=== PATIENT | female | born 1970 | race Caucasian/White ===

== ENCOUNTER → 2016-10-08 | Outpatient (CLI) | payer BC ==
[~2016-10-08] VITALS: Ht 160 cm; Wt 97.3 kg
[~2016-10-08] MED LIST: ALBUAER INH; ALPR-411 PO; ASCO1CAP3 PO; BACL1TAB PO; CHOL1000 PO; CYAN500T13 PO; DULO60CA44 PO; IBUP600T44 PO; LSN/2025 PO; MIRENA IUD; PREG100C PO; SIMV20TA2 PO
[2016-10-08 15:23] VITALS: BP 122/82; PULSE 82; Ht 160 cm; Wt 97.3 kg
== END | disposition home or self-care (01) ==
LOC: C.NEUR 13:54
PROVIDERS: ATTEND Internal Medicine Pulmonary Disease
DX: G47.00 Insomnia, unspecified (principal); G47.30 Sleep apnea, unspecified; E66.9 Obesity, unspecified; R06.83 Snoring; R53.83 Other fatigue

== ENCOUNTER → 2016-12-04 | Outpatient (CLI) | payer BC ==
--- NOTE | 2016-12-06 10:52 | POLYSOMNOGRAPH REPORT ---
CLINICAL DATA: A 46-year-old female with a BMI of [address] Moraes, Dr. Monroe and myself with symptoms of progressive snoring, witnessed apneic episodes, daytime fatigue, and hypersomnolence. On the evening of 12/05/2016, a home sleep apnea test was performed using a [employer] type 3 monitor. RECORDING RESULTS: Total recording time was 9 hours. The patient's monitoring time and estimated sleep time was 7.5 hours. RESPIRATORY DATA: Mild sleep apnea was documented. The RICO was 9.2. There was 1 obstructive apneic episode and 68 hypopneic episodes. The longest respiratory event was 43 seconds. OXIMETRY DATA: Nocturnal hypoxemia was seen. Oxygen raffy was 81%. Mean saturation was 96%. Time below 89% was 9 minutes. EKG: Heart rates ranged from 57-65 beats per minute. SNORING DATA: Snoring was recorded throughout the night. WRECKING SUPERVISOR'S COMMENTS: The patient had hypopneas and 1 apnea seen. All about 1 occurred while she was on her back. They occurred in clusters suggesting that they may have been occurring primarily during REM sleep. IMPRESSION: Mild sleep apnea/hypopnea with nocturnal hypoxemia. The majority of the patient's episodes occurred while lying on her back. RECOMMENDATIONS: The patient may benefit from weight loss, positional therapy, use of an oral appliance, or CPAP. Clinical correlation is needed. MAYTE
== END | disposition home or self-care (01) ==
LOC: C.NEUR 09:53
PROVIDERS: ATTEND Internal Medicine Pulmonary Disease
DX: R53.83 Other fatigue (principal); E66.9 Obesity, unspecified; G47.30 Sleep apnea, unspecified; R06.83 Snoring

== ENCOUNTER → 2016-12-31 | Outpatient (CLI) | payer BC ==
[~2016-12-31] VITALS: Ht 160 cm; Wt 97.8 kg
[2016-12-31 12:44] VITALS: BP 130/81; PULSE 90; Ht 160 cm; Wt 97.8 kg
== END | disposition home or self-care (01) ==
LOC: C.NEUR 12:25
PROVIDERS: ATTEND Internal Medicine Pulmonary Disease
DX: G47.30 Sleep apnea, unspecified (principal)

== ENCOUNTER 2017-05-01 18:17 | Inpatient (IN) | payer BC ==
[~2017-05-01] VITALS: Ht 160 cm; Wt 99.4 kg
--- NOTE | 2017-05-01 18:57 | EMERGENCY ROOM VISIT NOTE ---
History Report prepared by Rae: Tiffanie Poon Under the Supervision of: Dr. Alex Smith M.D. First contact with patient: 18:42 Chief Complaint: MENTAL HEALTH EVALUATION Stated Complaint: DEPRESSION History of Present Illness The patient is a 46 year old female who presents to the Emergency Room with complaints of persistent suicidal ideation for three weeks [employer]. She was recently seen by her therapist. She notes that she has been having thoughts of suicide for the last three weeks. She notes that she has had similar feelings in the past, though not this severe. She notes that she has a job, though it is unstable. She notes financial issues. She notes that she feels as though she will give up if something were to happen to her, though denies making any plans to commit suicide. She notes that if she got sick, she would not take her medication and she would rather "roll over and ." She notes headaches, nausea associated with nervousness. She has a history of vertigo. She denies any coughs, fevers, chills, congestion, dizziness, vomiting, diarrhea, abdominal pain, or urinary symptoms. 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 She notes nervousness. She denies any congestion or dizziness. Review of Systems See HPI for pertinent positives and negatives. A total of ten systems were reviewed and were otherwise negative. 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 (3) chiari decompression (4) Depression (5) Dry eyes (6) Fibromyalgia (7) NARENDRA (generalized anxiety disorder) (8) Major depressive disorder, recurrent severe without psychotic features (9) Neurogenic claudication (10) Spasm of thoracic back muscle (11) Spinal stenosis (12) Vertigo Surgical Problems: (1) H/O hernia repair (2) H/O tubal ligation (3) History of cholecystectomy Family History Cancer Diabetes mellitus Gallbladder disease Heart disease Hypertension Kidney disease Kidney stones Lung disease Social History Smoking Status: Never Smoker Smokeless Tobacco Use: No Alcohol Use: none Drug Use: none Marital Status: Housing Status: lives with significant other Occupation Status: employed Current/Historical Medications Scheduled Ascorbic Acid (Vitamin C), 1 CAP PO QAM Baclofen (Lioresal), 10 MG PO TID Cholecalciferol (Vitamin D3), 5,000 UNITS PO QAM Cyanocobalamin (Vitamin B12 500MCG), 1 TAB PO QAM Duloxetine Hcl (Cymbalta), 60 MG PO HS Hctz/Lisinopril (Zestoretic 20MG/25MG), 1 TAB PO QAM Levonorgestrel (Iud) (Mirena), 1 DOSE IU [id number] Polyethylene Glycol-Propylene (Systane Ultra), 1 DROPS OP DAILY Pregabalin (Lyrica), 1 CAP PO BID Simvastatin (Zocor), 20 MG PO QPM Trazodone Hcl (Trazodone), 100 MG PO HS [Black Cohosh], 2 TAB PO QAM Scheduled PRN Alprazolam (Xanax), 0.5 MG PO TID PRN for Anxiety Meclizine HCl (Meclizine HCl), 12.5 MG PO TID PRN for Dizziness or Vertigo Allergies Coded Allergies: No Known Allergies (Verified , `, 05/01/17) Physical Exam Vital Signs Date Time Temp Pulse Resp B/P (MAP) Pulse Ox O2 Delivery O2 Flow Rate FiO2 05/01/17 20:30 75 18 156/80 96 Room Air 05/01/17 18:31 37.0 77 16 149/92 96 Room Air Physical Exam GENERAL: Awake, alert, in no distress. Depressed affect. HENT: Normocephalic, atraumatic. Oropharynx dry mucus membranes EYES: Normal conjunctiva. Sclera non-icteric. NECK: Supple. No nuchal rigidity. FROM. No JVD. RESPIRATORY: Clear to auscultation. CARDIAC: Regular rate, normal rhythm. Extremities warm and well perfused. Pulses equal. ABDOMEN: Soft, non-distended. No tenderness to palpation. No rebound or guarding. No masses. RECTAL: Deferred. MUSCULOSKELETAL: Chest examination reveals no tenderness. The back is symmetrical on inspection without obvious abnormality. There is no CVA tenderness to palpation. No joint edema. LOWER EXTREMITIES: Calves are equal size bilaterally and non-tender. No edema. No discoloration. NEURO: Normal sensorium. No sensory or motor deficits noted. SKIN: No rash or jaundice noted. PSYCH: Positive SI: no plan, but passive ideation. No HI. Medical Decision & Procedures Laboratory Results 05/01/17 19:10 Red Blood Count 4.03, Mean Corpuscular Volume 91.6, Mean Corpuscular Hemoglobin 31.5, Mean Corpuscular Hemoglobin Concent 34.4, Mean Platelet Volume 10.5, Neutrophils (%) (Auto) 57.8, Lymphocytes (%) (Auto) 29.8, Monocytes (%) (Auto) 9.7, Eosinophils (%) (Auto) 2.3, Basophils (%) (Auto) 0.3, Neutrophils # (Auto) 4.23, Lymphocytes # (Auto) 2.18, Monocytes # (Auto) 0.71, Eosinophils # (Auto) 0.17, Basophils # (Auto) 0.02 05/01/17 19:10 Test 05/01/17 18:14 05/01/17 18:44 05/01/17 19:10 Urine Test NEG (NEG) Urine Color DK YELLOW Urine Appearance CLEAR (CLEAR) Urine pH 6.5 (4.5-7.5) Urine Specific [place] 1.016 (1.000-1.030) Urine Protein NEG (NEG) Urine Glucose (UA) NEG (NEG) Urine Ketones NEG (NEG) Urine Occult Blood NEG (NEG) Urine Nitrite NEG (NEG) Urine Bilirubin NEG (NEG) Urine Urobilinogen NEG (NEG) Urine Leukocyte Esterase TRACE (NEG) Urine WBC (Auto) 1-5 /hpf (0-5) Urine RBC (Auto) 0-4 /hpf (0-4) Urine Hyaline Casts (Auto) 1-5 /lpf (0-5) Urine Epithelial Cells (Auto) >30 /lpf (0-5) Urine Bacteria (Auto) 1+ (NEG) Urine Crystals TALC (NONE PRSENT) Urine Opiates Screen NEG (NEG) Urine Methadone, Qualitative NEG (NEG) Urine Barbiturates NEG (NEG) Urine Phencyclidine (PCP) Level NEG (NEG) Ur Amphetamine/Methamphetamine NEG (NEG) MDMA (Ecstasy) Screen NEG (NEG) Urine Benzodiazepines Screen POS (NEG) Urine Cocaine Metabolite NEG (NEG) Urine Marijuana (THC) NEG (NEG) White Blood Count 7.32 K/uL (4.8-10.8) Red Blood Count 4.03 M/uL (4.2-5.4) Hemoglobin 12.7 g/dL (12.0-16.0) Hematocrit 36.9 % (37-47) Mean Corpuscular Volume 91.6 fL (80-100) Mean Corpuscular Hemoglobin 31.5 pg (25-34) Mean Corpuscular Hemoglobin Concent 34.4 g/dl (32-36) Platelet Count 216 K/uL (130-400) Mean Platelet Volume 10.5 fL (7.4-10.4) Neutrophils (%) (Auto) 57.8 % Lymphocytes (%) (Auto) 29.8 % Monocytes (%) (Auto) 9.7 % Eosinophils (%) (Auto) 2.3 % Basophils (%) (Auto) 0.3 % Neutrophils # (Auto) 4.23 K/uL (1.4-6.5) Lymphocytes # (Auto) 2.18 K/uL (1.2-3.4) Monocytes # (Auto) 0.71 K/uL (0.11-0.59) Eosinophils # (Auto) 0.17 K/uL (0-0.5) Basophils # (Auto) 0.02 K/uL (0-0.2) RDW Standard Deviation 42.2 fL (36.4-46.3) RDW Coefficient of Variation 12.6 % (11.5-14.5) Immature Granulocyte % (Auto) 0.1 % Immature Granulocyte # (Auto) 0.01 K/uL (0.00-0.02) Anion Gap 5.0 mmol/L (3-11) Est Creatinine Clear Calc Drug Dose 115.1 ml/min Estimated GFR () 121.3 Estimated GFR (Non- 104.6 BUN/Creatinine Ratio 13.4 (10-20) Calcium Level 8.9 mg/dl (8.5-10.1) Total Bilirubin 0.5 mg/dl (0.2-1) Direct Bilirubin < 0.1 mg/dl (0-0.2) Aspartate Amino Transf (AST/SGOT) 13 U/L (15-37) Alanine Aminotransferase (ALT/SGPT) 32 U/L (12-78) Alkaline Phosphatase 51 U/L (45-117) Total Protein 7.4 gm/dl (6.4-8.2) Albumin 3.9 gm/dl (3.4-5.0) Globulin 3.5 gm/dl (2.5-4.0) Albumin/Globulin Ratio 1.1 (0.9-2) Thyroid Stimulating Hormone (TSH) 1.860 uIu/ml (0.300-4.500) Ethyl Alcohol mg/dL < 3.0 mg/dl (0-3) Laboratory results reviewed by me ED Course 1848: The patient was evaluated in room A8. A complete history and physical exam was performed. 2030: I spoke with Keturah Collazo, psychiatric case management. We discussed the patient's case. The patient is medically cleared. Medical Decision I reviewed the patient's past medical history, medications, and the nursing notes as described above. The patient's presentation and history were concerning for worsening depression , suicidality, glen, infectious vs. metabolic disturbance. The patient is a 46-year-old woman with a past medical history of depression who presents emergency Department with worsening depression and passive suicidal ideation related to her work per hpi. She reports passive suicidal ideation saying that if something were to happen to her she would just give up and . On arrival the patient has a depressed affect but is in no acute distress, afebrile with stable vital signs. Labs unremarkable in the patient was medically cleared. Given the patient's passive suicidal ideation and despair inpatient psych admission is reasonable. Patient willing to be admitted voluntarily. Admitted to 3[facility]. Medication Reconcilliation Current Medication List: was personally reviewed by me Blood Pressure Screening Patient's blood pressure: Elevated blood pressure Blood pressure disposition: Elevated BP felt to be situational Impression Primary Impression: Depression Additional Impression: Passive suicidal ideations Scribe Attestation The scribe's documentation has been prepared under my direction and personally reviewed by me in its entirety. I confirm that the note above accurately reflects all work, treatment, procedures, and medical decision making performed by me. Departure Information Dispostion Other ([facility]) Referrals Clarisse Moraes M.D. (MEDICAL) (PCP) Patient Instructions My [facility] Problem Qualifiers
[2017-05-01] MEDS ORDERED: TRAZ50TA35 PO (19:26)
[2017-05-01] MEDS ORDERED: POLY1SOL6 OP (19:26)
[2017-05-01] MEDS ORDERED: LEVO1IUD2 IU (19:27)
[2017-05-01] MEDS ORDERED: BLACK COHOSH PO (19:28)
[2017-05-01] MEDS ORDERED: ANT25 PO (19:29)
[2017-05-01 19:34] LABS: BASO % 0.3 %; BASO ABS # 0.02 K/uL (0-0.2); EOS % 2.3 %; EOS ABS # 0.17 K/uL (0-0.5); HEMATOCRIT 36.9 % (37-47); HEMOGLOBIN 12.7 g/dL (12.0-16.0); IG# 0.01 K/uL (0.00-0.02); LYMPH % 29.8 %; LYMPH ABS # 2.18 K/uL (1.2-3.4); MEAN CELL VOLUME 91.6 fL (80-100); MEAN CORPUSCULAR HEMOGLOBIN 31.5 pg (25-34); MEAN CORPUSCULAR HGB CONC 34.4 g/dl (32-36); MEAN PLATELET VOLUME 10.5 fL (7.4-10.4); MONO % 9.7 %; MONO ABS # 0.71 K/uL (0.11-0.59); NEUT % 57.8 %; NEUT ABS # 4.23 K/uL (1.4-6.5); PLATELET COUNT 216 K/uL (130-400); RED CELL DISTRIBUTION WIDTH CV 12.6 % (11.5-14.5); RED CELL DISTRIBUTION WIDTH SD 42.2 fL (36.4-46.3); WHITE BLOOD COUNT 7.32 K/uL (4.8-10.8)
[2017-05-01 19:52] LABS: ALBUMIN 3.9 gm/dl (3.4-5.0); ALT/SGPT 32 U/L (12-78); AST/SGOT 13 U/L (15-37); BLOOD UREA NITROGEN 9 mg/dl (7-18); CALCIUM 8.9 mg/dl (8.5-10.1); CARBON DIOXIDE 28 mmol/L (21-32); GLUCOSE 92 mg/dl (70-99); POTASSIUM 3.3 mmol/L (3.5-5.1); SODIUM 136 mmol/L (136-145)
[2017-05-01 20:09] LABS: ALKALINE PHOSPHATASE 51 U/L (45-117); TOTAL PROTEIN 7.4 gm/dl (6.4-8.2)
[2017-05-01] MEDS ORDERED: IBUPROFEN 600 MG TAB PO STA (21:38)
[2017-05-01 21:59] VITALS: O2SAT 96
[2017-05-01] MEDS ORDERED: ALPR-411 PO (22:23)
[2017-05-01] MEDS ORDERED: NURSING VERBAL MED ORDER ONE (22:30)
[2017-05-01] MEDS ORDERED: ALPRAZOLAM 0.5 MG TAB PO PRN (22:45)
[2017-05-01] MEDS ORDERED: hydrOXYzine HCL 25 MG TAB PO PRN ×2 (22:45)
[2017-05-01] MEDS ORDERED: ALUMINUM/MAGNESIUM SUSP 30 ML UDC PO PRN (22:45)
[2017-05-01] MEDS ORDERED: BISMUTH SUBSALICYLATE PER ML OMNICELL CHARGE PO PRN (22:45)
[2017-05-01] MEDS ORDERED: MAGNESIUM HYDROXIDE SUSP 30 ML UDC PO PRN (22:45)
[2017-05-01] MEDS ORDERED: SODIUM CHLORIDE 0.65% NA SOLN 45 ML (OCEAN) PRN (22:45)
[2017-05-01 22:46] VITALS: BP 126/81; PULSE 77; TEMP 37; Ht 160 cm; Wt 99.4 kg
[2017-05-01] MEDS ORDERED: DULOXETINE HCL 60 MG CAP PO SCH (23:00)
[2017-05-01] MEDS ORDERED: TRAZODONE HCL 100 MG TAB PO SCH (23:00)
[2017-05-01] MEDS: BACLOFEN 10 MG TAB PO SCH (23:06)
[2017-05-02 06:54] VITALS: BP_SYST 123; BP_SYST 125; BP_DIAS 66; BP_DIAS 85; PULSE 69; PULSE 73; TEMP 36.8
[2017-05-02] MEDS: BACLOFEN 10 MG TAB PO SCH ×3 (09:17→21:20)
[2017-05-02] MEDS ORDERED: LISINOPRIL/HCTZ 20/25MG TAB PO ONE (10:31)
--- NOTE | 2017-05-02 10:31 | Psychiatric History & Physical ---
History Date of Service May 02, 2017. Identifying Data Xin Wesley is a 46-year-old female admitted voluntarily on May 01, 2017 at 21 :28 who presented to the emergency department with her mother on referral from her therapist, Jill Byrd. The patient has been depressed anxious and unable to function with passive suicidal thinking. Information is gathered from the patient and considered to be reliable. Chief Complaint "I can't deal.". History of Present Illness The patient is a 46-year-old woman who is currently in mental health treatment with a therapist, Jill Byrd for the last 3 years for depression and anxiety. She is on antidepressants and antianxiety agents as prescribed by her neurologist whom she sees for Chiari malformation and fibromyalgia. She has a history of depression dating back to his early as the when her lost his job and there was a great deal of stress placed upon her. She felt traumatized by the experience as she had to get food stamps and was embarrassed. During that time she also said she had some behaviors that were "not like me" including exercising to excess as a coping strategy, losing weight and ultimately having an affair. Since that time her has gotten another job. 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 She then took a job with the outsourcing [employer] but it was at a lesser pay rate and this was a financial stress. Recently she learned that as a result of the cyber attacks, their company has been losing accounts, and the particular account she had been working for will stop by next week. She fears that she will lose her job altogether and feels she has very few resources for a new job given the fact that she doesn't have a college degree. She also has what she describes as "physical limitations on "based on the fact that she has back issues, fibromyalgia, neurogenic claudication that make it difficult for her to stand or be active for long periods of time. Her parents will be moving in with them somewhere around August after they make some modifications to the house. There are movies 2 fold, one to help with her father who is in poor health but also for the parents to be able to help them financially. She is worried about the process of obtaining alone in order to create the in law suite for her parents. She has been increasingly anxious, depressed, sleeping a great deal. She has been begun to have suicidal thoughts, passive in nature, saying that if something happened and she she wouldn't care. Yesterday, she was feeling overwhelmed. She was escaping to her closet to cry where there were no windows and no one could see her. She recognized that she was deteriorating and so called her therapist who saw her urgently and then referred her to the emergency department. The patient reports worsening depression for at least the last 3 weeks. She admits to passive suicidal thinking. Her sleep has been to excess, napping during the day as well as sleeping at night. Her appetite has been low. She put on weight over the holidays but she thinks she has lost that weight with her low appetite recently. Her energy is low. Her focus and concentration are poor. She thinks she is doing okay at work but finds that she can't remember things well. She also describes having load cognitive issues". She had neuropsych testing that confirmed that she has comprehension issues but doesn't know anything more specific about that. She reports chronic anxiety but lately it is the "worst it's ever been". She experiences symptoms of shaking, feeling uneasy, having a sense of doom and gloom. She has a history of panic attacks but has not experienced any lately. She denies any auditory or visual hallucinations. She denies any discrete episodes of euphoric mood, sleeplessness or pleasure seeking behaviors but says she does have times when she finds brinda in decorating and will plan to have lots of projects such as painting rooms. She denies any history of self-injurious behaviors. She denies any history of eating disorder behaviors although does admit that she eats for comfort. Past Psychiatric History Current OP Treatment: therapist (Arely Byrd) Prior OP Treatment: no prior treatment Prior Psych Hospitalizations: none Access to a Gun: Yes (2 are not locked) Suicide Attempts: No Past Medication Trials 1. Celexa- had to come off when Dr. Avilez wanted to start Cymbalta 2. Effexor-didn't work 3. Prozac-didn't work, and affective blunting Past Medical/Surgical History History of Concussion/Seizure: No (1) chiari decompression (2) bone tumor removal of right toe (3) Fibromyalgia (4) Spinal stenosis (5) Vertigo (6) Dry eyes (7) Neurogenic claudication Allergies Allergies: Coded Allergies: No Known Allergies (Verified , `, 05/01/17) Home Medications Scheduled Ascorbic Acid (Vitamin C), 1 CAP PO QAM Baclofen (Lioresal), 10 MG PO TID Cholecalciferol (Vitamin D3), 5,000 UNITS PO QAM Cyanocobalamin (Vitamin B12 500MCG), 1 TAB PO QAM Duloxetine Hcl (Cymbalta), 60 MG PO HS Hctz/Lisinopril (Zestoretic 20MG/25MG), 1 TAB PO QAM Levonorgestrel (Iud) (Mirena), 1 DOSE IU [id number] Polyethylene Glycol-Propylene (Systane Ultra), 1 DROPS OP DAILY Pregabalin (Lyrica), 1 CAP PO BID Simvastatin (Zocor), 20 MG PO QPM Trazodone Hcl (Trazodone), 100 MG PO HS [Black Cohosh], 2 TAB PO QAM Scheduled PRN Alprazolam (Xanax), 0.5 MG PO TID PRN for Anxiety Meclizine HCl (Meclizine HCl), 12.5 MG PO TID PRN for Dizziness or Vertigo Family History Cancer Diabetes mellitus Gallbladder disease Heart disease Hypertension Kidney disease Kidney stones Lung disease History of Suicide: No History of Substance Abuse: No Psychiatric History: Yes (both parents with anxiety and depression, maternal grandmother with "nerve issues". Son with ADHD) Alcohol Use Alcohol Use In Past 12 Months: No AUDIT Total Score: 1 Smoking Use Smoking Status: Never Smoker Substance History Denies Personal History Lives in: [place] Childhood: Raised by both mother and father. Has one brother one sister. Good relationship with brother, estranged from sister. She grew up locally. 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 [employer] Relationship History: (25 years) Children: 2 adult sons ages 20 and 23 Spiritual Affiliation: Voodoo Legal History: none Psychological Trauma History: Denies Hx Traumatic Event Review of Systems Constitutional: malaise Eyes: reports: other (dry eyes) ENT: denies: no symptoms reported, see HPI, ear pain, ear discharge, loss of hearing, tinnitus, nasal pain, nasal congestion, rhinorrhea, epistaxis, sore throat, stidor, throat swelling, mouth pain, mouth swelling, dental pain, gum swelling, other Cardiovascular: denies: no symptoms reported, see HPI, chest pain, chest tightness, chest pressure, diaphoresis, palpitations, syncope, other Respiratory: denies: no symptoms reported, see HPI, cough, orthopnea, short of breath, stridor, wheezing, sputum production, cyanosis, PUENTE, PND, other Gastrointestinal: nausea Genitourinary - Female: reports: other (urinary frequency) Musculoskeletal: other (chronic low back pain rated 3 out of 10) Integumentary: denies no symptoms reported, denies see HPI, denies change in color, denies change in hair/nails, denies dryness, denies lesions, denies lumps , denies rash, denies other Neurologic: reports: paresthesias (bilateral lower extremities) Endocrine: denies: no symptoms, as stated in HPI, cold intolerance, heat intolerance, hair changes, goiter, polydipsia, polyuria, skin changes, other Hematologic / Lymphatic: denies: no symptoms, as stated in HPI, abnormal clotting, adenopathy, anemia, easy bleeding, easy bruising, gums bleeding, petechiae, other Examination Physical Examination Exam performed by Dr. espinoza in the emergency Department has been reviewed and accepted as medical clearance for our unit Vital Signs Vital Signs Past 12 Hours Date Time Temp Pulse Resp B/P (MAP) Pulse Ox O2 Delivery O2 Flow Rate FiO2 05/02/17 06:54 36.8 69 16 123/85 73 125/66 05/01/17 22:46 37.0 77 18 126/81 Laboratory Results Last 24 Hours Test 05/01/17 18:14 05/01/17 18:44 05/01/17 19:10 Urine Test NEG Urine Color DK YELLOW Urine Appearance CLEAR Urine pH 6.5 Urine Specific [place] 1.016 Urine Protein NEG Urine Glucose (UA) NEG Urine Ketones NEG Urine Occult Blood NEG Urine Nitrite NEG Urine Bilirubin NEG Urine Urobilinogen NEG Urine Leukocyte Esterase TRACE Urine WBC (Auto) 1-5 /hpf Urine RBC (Auto) 0-4 /hpf Urine Hyaline Casts (Auto) 1-5 /lpf Urine Epithelial Cells (Auto) >30 /lpf Urine Bacteria (Auto) 1+ Urine Crystals TALC Urine Opiates Screen NEG Urine Methadone, Qualitative NEG Urine Barbiturates NEG Urine Phencyclidine (PCP) Level NEG Ur Amphetamine/Methamphetamine NEG MDMA (Ecstasy) Screen NEG Urine Benzodiazepines Screen POS Urine Cocaine Metabolite NEG Urine Marijuana (THC) NEG White Blood Count 7.32 K/uL Red Blood Count 4.03 M/uL Hemoglobin 12.7 g/dL Hematocrit 36.9 % Mean Corpuscular Volume 91.6 fL Mean Corpuscular Hemoglobin 31.5 pg Mean Corpuscular Hemoglobin Concent 34.4 g/dl Platelet Count 216 K/uL Mean Platelet Volume 10.5 fL Neutrophils (%) (Auto) 57.8 % Lymphocytes (%) (Auto) 29.8 % Monocytes (%) (Auto) 9.7 % Eosinophils (%) (Auto) 2.3 % Basophils (%) (Auto) 0.3 % Neutrophils # (Auto) 4.23 K/uL Lymphocytes # (Auto) 2.18 K/uL Monocytes # (Auto) 0.71 K/uL Eosinophils # (Auto) 0.17 K/uL Basophils # (Auto) 0.02 K/uL RDW Standard Deviation 42.2 fL RDW Coefficient of Variation 12.6 % Immature Granulocyte % (Auto) 0.1 % Immature Granulocyte # (Auto) 0.01 K/uL Sodium Level 136 mmol/L Potassium Level 3.3 mmol/L Chloride Level 103 mmol/L Carbon Dioxide Level 28 mmol/L Anion Gap 5.0 mmol/L Blood Urea Nitrogen 9 mg/dl Creatinine 0.70 mg/dl Est Creatinine Clear Calc Drug Dose 115.1 ml/min Estimated GFR () 121.3 Estimated GFR (Non- 104.6 BUN/Creatinine Ratio 13.4 Random Glucose 92 mg/dl Calcium Level 8.9 mg/dl Total Bilirubin 0.5 mg/dl Direct Bilirubin < 0.1 mg/dl Aspartate Amino Transf (AST/SGOT) 13 U/L Alanine Aminotransferase (ALT/SGPT) 32 U/L Alkaline Phosphatase 51 U/L Total Protein 7.4 gm/dl Albumin 3.9 gm/dl Globulin 3.5 gm/dl Albumin/Globulin Ratio 1.1 Thyroid Stimulating Hormone (TSH) 1.860 uIu/ml Ethyl Alcohol mg/dL < 3.0 mg/dl Mental Examination During interview pt is: alert and oriented, cooperative Appearance: appropriately dressed, appropriately groomed Eye contact is: good Motor behavior is: steady gait & station, no abnormal motor movements Speech: normal in rate, rhythm & volume Affect: depressed, flat Mood is: depressed, anxious Thought process: goal directed Thought content: reality based without delusions Suicidal thought are: present, Plan: denied, Intent: denied Homicidal thoughts are: denied Hallucinations: denies auditory, denies visual Cognition: memory grossly intact, attention grossly intact, language grossly intact Intelligence estimated to be: average Insight: impaired Judgement: impaired Impression / Recommendations Impression 46-year-old woman admitted with depression and anxiety, inability to function. Her primary stresses the reduction in her work possibilities and fear that she will become unemployed. She is currently on Cymbalta 60 mg and has agreed for this to be increased to 90 mg daily to target mood and anxiety as well as her chronic pain. She has been sleeping to excess and so we will reduce her trazodone to 50 mg daily and potentially discontinue. This is also worsening her dry eyes. She has been on Xanax when necessary but appears to be chasing her anxiety and so we will convert this to Klonopin 1 mg twice a day when necessary. Her urine analysis reveals 1+ bacteria and she is having some frequency is so will order a UA with culture if indicated. At this time, the patient requires inpatient mental health treatment due to the severity of her condition and the risk for self-harm if discharged. Inventory Assets Strengths: Willingness to engage in treatment, support from family Needs: To learn additional healthy coping strategies Risk Factors Assessment : Yes /single/: No Higher / Fall in social status: No Access to guns: Yes Health problems: Yes Mental Health Diagnoses: Yes Substance use disorders: No Previous attempt: No Previous psychiatric stay: No Hopelessness: No Smoker: No Protective Factors Assessment Episcopal beliefs: Yes : Yes Responsible for young children: No Employed: Yes Stable relationships: Yes Supportive family: Yes Good rapport with provider: Yes Recommendations (1) Major depressive disorder, recurrent severe without psychotic features 05/02 - Increase Cymbalta to 90 mg daily - Family meeting with - Coordinate care with outpatient therapist - The patient will need a psychiatric prescriber upon discharge - Every 15 minute checks for safety -Encourage participation in group and individual counseling - Assist the patient to explore and utilize additional healthy coping strategies -reduce trazodone 50 mg at bedtime in view of hypersomnolence - (2) NARENDRA (generalized anxiety disorder) 05/02 - Cymbalta as above - Will DC Xanax in favor of longer acting Klonopin 1 mg twice a day when necessary - Assist the patient to explore conflicts of mindfulness (3) Fibromyalgia 05/02 - Continue outpatient dosing of baclofen, herbert, - Encourage patient to be out of bed and ambulating when able (4) Dry eyes 05/02 - Will continue eye drops and outpatient dosing - Will be tapering and perhaps discontinuing trazodone which also contributes to dry mucous membranes (5) Spinal stenosis 05/02 - Continue baclofen and herbert at outpatient doses - Encourage walking Dr. Anna Munoz has personally been involved in the review of this case and the development of the above treatment plan. CPT Code Initial Hospital Care: 97812
[2017-05-02] MEDS ORDERED: MECLIZINE HCL 12.5 MG TAB PO PRN (10:45)
[2017-05-02] MEDS ORDERED: CLONAZEPAM 1 MG TAB PO PRN (10:45)
[2017-05-02] MEDS ORDERED: PREGABALIN 100 MG CAP PO ONE (11:15)
[2017-05-02] MEDS ORDERED: CHOLECALCIFEROL 1000 INTER.UNIT TAB PO ONE (11:30)
[2017-05-02] MEDS ORDERED: SIMVASTATIN 20 MG TAB PO SCH (21:00)
[2017-05-02] MEDS: TRAZODONE HCL 50 MG TAB PO SCH (21:20)
[2017-05-02] MEDS: PREGABALIN 100 MG CAP PO SCH (21:20)
[2017-05-02] MEDS: DULOXETINE (CYMBALTA) 30 MG CAP PO SCH (21:20)
[2017-05-02] MEDS: SIMVASTATIN 20 MG TAB PO SCH (21:21)
[2017-05-03] MEDS: ACETAMINOPHEN 325 MG TAB PO PRN ×3 (07:00→17:45)
[2017-05-03 07:04] VITALS: BP_SYST 107; BP_SYST 116; BP_DIAS 70; BP_DIAS 80; PULSE 65; PULSE 74; TEMP 36.4
[2017-05-03] MEDS: BACLOFEN 10 MG TAB PO SCH ×3 (08:54→23:36)
[2017-05-03] MEDS: LISINOPRIL/HCTZ 20/25MG TAB PO SCH (08:54)
[2017-05-03] MEDS: PREGABALIN 100 MG CAP PO SCH ×2 (08:54→23:36)
[2017-05-03] MEDS: CYANOCOBALAMIN 500 MCG TAB (VIT B-12) PO SCH (08:54)
[2017-05-03] MEDS: CHOLECALCIFEROL 1000 INTER.UNIT TAB PO SCH (08:55)
[2017-05-03] MEDS: ASCORBIC ACID 500 MG TAB PO SCH (08:55)
--- NOTE | 2017-05-03 13:55 | Psychiatric Progress Notes ---
Progress Note Date of Service May 03, 2017. Interval History Xin Wesley is a 46-year-old female admitted voluntarily on May 01, 2017 at 21 :28 who presented to the emergency department with her mother on referral from her therapist, Jill Byrd. The patient has been depressed anxious and unable to function with passive suicidal thinking. Information is gathered from the patient and considered to be reliable. Chief Complaint "my mood's fine, just getting rid of this headache". Subjective Patient was seen & assessed interval progress reviewed with Nursing. Pt is seen while laying in bed with wet compress on her forehead. She reports she is trying to get rid of one of her frequent headaches. Pt states her mood is improved and she is pleased with the result of her family meeting with her and mother. She states she was able to express herself to them in a way she couldn't before and thought that was helpful. Pt feels her mood is improved and denies SI at this time. Pt states "I feel like it's gone from those thoughts back to just anxiety". Pt states she continues to worry about their jobs and financial stressors. She denies adverse effects from increase in Cymbalta. Pt reports improved appetite since admission. Sleep was difficult last evening due to back pain. Review of Systems Psych: denies symptoms other than stated above Constitutional: Reports current headache Cardiovascular: denied GI: denied Neurologic: denied Remainder of 10 body systems also reviewed and denied other than noted above. Sleep Information Total Hours of Sleep: 6.00 Meal Information Percent of Breakfast Consumed: 100 Percent of Lunch Consumed: 100 Percent of Dinner Consumed: 75 Mental Status Exam During interview pt is: alert and oriented, cooperative Appearance: appropriately dressed, appropriately groomed, other (laying in bed) Eye contact is: fair Motor behavior is: no abnormal motor movements Speech: normal in rate, rhythm & volume Affect: blunted Mood is: depressed Thought process: goal directed, linear, logical Thought content: reality based without delusions Suicidal thought are: denied, Plan: denied, Intent: denied Homicidal thoughts are: denied Hallucinations: denies auditory, denies visual Cognition: memory grossly intact, attention grossly intact, language grossly intact Intelligence estimated to be: average Insight: fair Judgement: fair Impression Improvement in anxiety and depression since admission. Helpful family meeting today in which she was able to speak with her and mother about her stressors. Feeling more optimistic today. Tolerating increase of Cymbalta to 90mg. Some difficulty sleeping last evening due to back pain, but was eventually successful. Continue to monitor as we are decreasing Trazodone. Pt requires inpatient mental health hospitalization due to only recent improvement in symptoms and risk for self-harm if discharged prematurely. Plan (1) Major depressive disorder, recurrent severe without psychotic features 05/02 - Increase Cymbalta to 90 mg daily - Family meeting with - Coordinate care with outpatient therapist - The patient will need a psychiatric prescriber upon discharge - Every 15 minute checks for safety -Encourage participation in group and individual counseling - Assist the patient to explore and utilize additional healthy coping strategies -reduce trazodone 50 mg at bedtime in view of hypersomnolence 05/03 - Tolerating increased dose of Cymbalta. Continue at 90mg daily. Continue medication regimen as above. (2) NARENDRA (generalized anxiety disorder) 05/02 - Cymbalta as above - Will DC Xanax in favor of longer acting Klonopin 1 mg twice a day when necessary - Assist the patient to explore conflicts of mindfulness 05/03 - Continue as above (3) Fibromyalgia 05/02 - Continue outpatient dosing of baclofen, herbert, - Encourage patient to be out of bed and ambulating when able (4) Dry eyes 05/02 - Will continue eye drops and outpatient dosing - Will be tapering and perhaps discontinuing trazodone which also contributes to dry mucous membranes (5) Spinal stenosis 05/02 - Continue baclofen and herbert at outpatient doses - Encourage walking Dr. Anna Munoz has personally been involved in the review of this case and the development of the above treatment plan. Discharge / Aftercare Planning Primary Care Physician: Name: Con Epps Date of Appointment: May 08, 2017 Time of Appointment: 1:45 p.m. Psychiatrist: Name: [facility] - waiting environmental marketer 05/05/17 for scheduling Therapist: Name: Arely Byrd @ [facility] Date of Appointment: May 06, 2017 [employer] Log[employer] Analyst: Name: Jarrod Neurologist: Name: Dr. [facility] [place] Visit Code E&M Code: 96338 Inventory Assets Strengths: Willingness to engage in treatment, support from family Needs: To learn additional healthy coping strategies Risk Factors Assessment : Yes /single/: No Higher / Fall in social status: No Health problems: Yes Mental Health Diagnoses: Yes Substance use disorders: No Previous attempt: No Previous psychiatric stay: No Hopelessness: No Smoker: No Protective Factors Assessment Islam beliefs: Yes : Yes Responsible for young children: No Employed: Yes Stable relationships: Yes Supportive family: Yes Good rapport with provider: Yes Data Vital Signs Last 24 Hrs: Date Time Temp Pulse Resp B/P (MAP) Pulse Ox O2 Delivery O2 Flow Rate FiO2 05/03/17 07:04 36.4 65 20 107/70 74 116/80 Meds Administered Last 24 Hrs: Meds Administered (Past 24Hrs) Medications (Trade) Dose Ordered Sig/Roxane Route Start Time Stop Time Status Last Admin Dose Admin Ibuprofen (Motrin Tab) 600 mg NOW STAT PO 05/01/17 21:38 05/01/17 21:39 DC 05/01/17 21:59 600 MG Acetaminophen (Tylenol Tab) 650 mg Q4H PRN PO 05/01/17 22:45 05/31/17 22:44 05/03/17 11:04 650 MG Baclofen (Lioresal Tab) 10 mg TID PO 05/01/17 23:00 05/31/17 22:59 05/03/17 08:54 10 MG Duloxetine HCl (Cymbalta Cap) 60 mg HS PO 05/01/17 23:00 05/02/17 10:35 DC 05/01/17 23:06 60 MG Simvastatin (Zocor Tab) 20 mg HS PO 05/02/17 23:00 06/01/17 22:59 05/02/17 21:21 20 MG Trazodone HCl (Desyrel Tab) 100 mg HS PO 05/01/17 23:00 05/02/17 10:35 DC 05/01/17 23:06 100 MG Trazodone HCl (Desyrel Tab) 50 mg HS PO 05/02/17 22:00 06/01/17 21:59 05/02/17 21:20 50 MG Duloxetine HCl (Cymbalta Cap) 90 mg HS PO 05/02/17 22:00 06/01/17 21:59 05/02/17 21:20 90 MG Cholecalciferol (Vitamin D Tab) 5,000 inter.unit QAM PO 05/03/17 09:00 06/02/17 08:59 05/03/17 08:55 5,000 INTER.UNIT Cyanocobalamin (Vitamin B-12 Tab) 500 mcg QAM PO 05/03/17 09:00 06/02/17 08:59 05/03/17 08:54 500 MCG HCTZ/Lisinopril (Prinzide 20-25MG Tab) 1 tab QAM PO 05/03/17 09:00 06/02/17 08:59 05/03/17 08:54 1 TAB Pregabalin (Lyrica Cap) 100 mg BID PO 05/02/17 22:00 06/01/17 21:59 05/03/17 08:54 100 MG Ascorbic Acid (Vitamin C Tab) 500 mg QAM PO 05/03/17 09:00 06/02/17 08:59 05/03/17 08:55 500 MG Cholecalciferol (Vitamin D Tab) 5,000 inter.unit 1130 ONCE PO 05/02/17 11:30 05/02/17 11:31 DC 05/02/17 11:20 5,000 INTER.UNIT HCTZ/Lisinopril (Prinzide 20-25MG Tab) 1 tab 1031 ONCE PO 05/02/17 10:31 05/02/17 10:50 DC 05/02/17 11:20 1 TAB Pregabalin (Lyrica Cap) 100 mg 1115 ONCE PO 05/02/17 11:15 05/02/17 11:16 DC 05/02/17 11:20 100 MG
[2017-05-03 22:10] VITALS: BP 170/101; PULSE 88; TEMP 36.6
[2017-05-03] MEDS ORDERED: ONDANSETRON 4 MG TAB PO PRN (22:15)
[2017-05-03] MEDS ORDERED: IBUPROFEN 800 MG TAB PO PRN (22:15)
[2017-05-03] MEDS: TRAZODONE HCL 50 MG TAB PO SCH (23:35)
[2017-05-03] MEDS: DULOXETINE (CYMBALTA) 30 MG CAP PO SCH (23:36)
[2017-05-03] MEDS: SIMVASTATIN 20 MG TAB PO SCH (23:36)
[2017-05-04 07:01] VITALS: BP_SYST 101; BP_SYST 110; BP_DIAS 64; BP_DIAS 75; PULSE 69; TEMP 36.4
[2017-05-04] MEDS: BACLOFEN 10 MG TAB PO SCH ×3 (07:58→22:16)
[2017-05-04] MEDS: PREGABALIN 100 MG CAP PO SCH ×2 (07:58→22:15)
[2017-05-04] MEDS: LISINOPRIL/HCTZ 20/25MG TAB PO SCH (07:59)
[2017-05-04] MEDS: CYANOCOBALAMIN 500 MCG TAB (VIT B-12) PO SCH (07:59)
[2017-05-04] MEDS: ASCORBIC ACID 500 MG TAB PO SCH (08:00)
[2017-05-04] MEDS: CHOLECALCIFEROL 1000 INTER.UNIT TAB PO SCH (08:01)
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
[2017-05-04] MEDS: TRAZODONE HCL 50 MG TAB PO SCH (22:15)
[2017-05-04] MEDS: SIMVASTATIN 20 MG TAB PO SCH (22:16)
[2017-05-04] MEDS: DULOXETINE (CYMBALTA) 30 MG CAP PO SCH (22:17)
[2017-05-05 06:57] VITALS: BP_SYST 126; BP_SYST 150; BP_DIAS 72; BP_DIAS 83; PULSE 76; PULSE 79; TEMP 36.8
[2017-05-05] MEDS: BACLOFEN 10 MG TAB PO SCH (08:20)
[2017-05-05] MEDS: LISINOPRIL/HCTZ 20/25MG TAB PO SCH (08:20)
[2017-05-05] MEDS: CYANOCOBALAMIN 500 MCG TAB (VIT B-12) PO SCH (08:21)
[2017-05-05] MEDS: CHOLECALCIFEROL 1000 INTER.UNIT TAB PO SCH (08:21)
[2017-05-05] MEDS: ASCORBIC ACID 500 MG TAB PO SCH (08:21)
[2017-05-05] MEDS: PREGABALIN 100 MG CAP PO SCH (08:22)
[2017-05-05] MEDS ORDERED: KLN1 PO (10:45)
[2017-05-05] MEDS ORDERED: TRAZ50TA35 PO (10:45)
[2017-05-05] MEDS ORDERED: CYM30 PO (10:45)
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
[2017-05-05] MEDS ORDERED: DESTROY THIS MEDICATION ONE (11:30)
== END 2017-05-05 12:15 | disposition home or self-care (01) | DRG 885 ==
LOC: C.EDB 18:18 → C.MHU 21:28
PROVIDERS: ADMIT Psychiatry & Neurology Psychiatry; ATTEND Psychiatry & Neurology Child & Adolescent Psychiatry
DX: F33.2 Major depressive disorder, recurrent severe without psychotic features (principal); R45.851 Suicidal ideations; F41.1 Generalized anxiety disorder; M79.7 Fibromyalgia; M62.830 Muscle spasm of back; M48.00 Spinal stenosis, site unspecified; H57.8 Other specified disorders of eye and adnexa; Z79.899 Other long term (current) drug therapy; Z83.3 Family history of diabetes mellitus; Z82.49 Family history of ischemic heart disease and other diseases of the circulatory system; Z84.1 Family history of disorders of kidney and ureter; Z81.8 Family history of other mental and behavioral disorders

== ENCOUNTER → 2017-07-30 | Outpatient (CLI) | payer BC ==
[~2017-07-30] MED LIST changes: -ALBUAER INH; -ALPR-411 PO; +ANT25 PO; +BLACK COHOSH PO; +CYM30 PO; +ESCI10TA17 PO; -IBUP600T44 PO; +KLN1 PO; +LEVO1IUD2 IU; -MIRENA IUD; +POLY1SOL6 OP; +TRAZ50TA35 PO
--- NOTE | 2017-07-30 17:55 | DIAGNOSTIC IMAGING REPORT ---
MRI OF THE THORACIC SPINE WITHOUT CONTRAST CLINICAL HISTORY: Thoracic radiculopathy. Thoracic hydromyelia. COMPARISON: MRI of the thoracic spine February 28, 2014. TECHNIQUE: Utilizing a 1.5 Shelly magnet and dedicated coil, multiplanar, multiecho imaging of the thoracic spine was performed without IV contrast. FINDINGS: Alignment of the thoracic spine is anatomic. Vertebral body heights are maintained. There is no suspicious marrow replacement. No intracanalicular mass or fluid collection is identified on this unenhanced exam. Mild dilatation of the central canal of the thoracic cord, measuring up to 2 mm in AP dimension, is unchanged since MRI of February 28, 2014. No additional sites of thoracic cord signal abnormality are present. No disc herniation is present. Central canal and neural foramen are patent. Paravertebral soft tissues within the thoracic region are unremarkable. Bellows Filler image demonstrates a 4.9 cm lobulated T1 hypointense structure posterior to the uterus. IMPRESSION: 1. Patent central canal and neural foramen within the thoracic spine. No disc herniation. 2. 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 3. 4.9 cm lobulated T1 hypointense structure posterior to the uterus. This is suboptimally assessed on this exam. This could reflect an exophytic fibroid, ovarian cyst/lesion or portion of the bowel. A follow-up nonemergent pelvic ultrasound is recommended. Electronically signed by: Victorino Lee M.D. 07/30/2017 5:54 PM Dictated Date/Time: 07/30/2017 5:44 PM
== END | disposition home or self-care (01) ==
LOC: C.MRI 16:53
PROVIDERS: ATTEND Neurological Surgery
DX: M54.14 Radiculopathy, thoracic region (principal)